=== PATIENT | female | born 2000 | race African-American/Black ===

== ENCOUNTER 2020-06-06 12:34 | Emergency (ER) | payer MEDICAID ==
[~2020-06-06] VITALS: Ht 165.1 cm; Wt 57.5 kg
[2020-06-06 13:22] LABS: BASO # 0.1 10^3/uL (0.0-0.2); EOS # 0.1 10^3/uL (0.0-0.5); EOS % 1.2 % (0.0-3.0); HEMATOCRIT 25.3 % (36.0-47.0); HEMOGLOBIN 7.3 g/dl (12.0-15.5); LYMPH # 1.6 10^3/uL (1.5-5.0); LYMPH % 22.1 % (24.0-44.0); MEAN CORPUSCULAR HEMOGLOBIN 20.4 pg (27.0-33.0); MEAN CORPUSCULAR HGB CONC 28.9 g/dl (32.0-36.5); MEAN CORPUSCULAR VOLUME 70.9 fl (80.0-96.0); MONO # 0.4 10^3/uL (0.0-0.8); MONO % 4.8 % (0.0-5.0); NEUTROPHILS # 5.2 10^3/uL (1.5-8.5); NEUTROPHILS % 70.8 % (36.0-66.0); PLATELET COUNT, AUTOMATED 354 10^3/uL (150-450); RED BLOOD COUNT 3.57 10^6/uL (4.00-5.40); WHITE BLOOD COUNT 7.3 10^3/uL (4.0-10.0)
[2020-06-06] MEDS ORDERED: NS 1,000 ML IV ONE (13:45)
[2020-06-06 13:59] LABS: HCG, SERUM QUALITATIVE NEGATIVE (NEGATIVE)
[2020-06-06 14:22] LABS: GLUCOSE, URINE (UA) MANUAL 1+(100 MG/DL) mg/dL (NEGATIVE); KETONE, URINE MANUAL NEGATIVE (NEGATIVE); UROBILINOGEN, URINE MANUAL NORMAL (NORMAL)
[2020-06-06 14:23] LABS: BILIRUBIN, URINE MANUAL NEGATIVE (NEGATIVE)
[2020-06-06 14:26] LABS: RBC, URINE TNTC /hpf (0-3)
[2020-06-06 14:32] LABS: SQUAMOUS EPITHELIAL CELL URINE SMALL AMOUNT /hpf (SMALL AMT)
[2020-06-06 14:39] LABS: BACTERIA, URINE NONE SEEN
[2020-06-06 14:40] LABS: HYALINE CAST, URINE NONE SEEN /lpf (0-1)
[2020-06-06 15:28] LABS: ALT/SGPT 13 U/L (12-78); BILIRUBIN,DIRECT 0.1 MG/DL (0.0-0.2); BILIRUBIN,TOTAL 0.5 MG/DL (0.2-1.0); BLOOD UREA NITROGEN 10 MG/DL (7-18); CALCIUM LEVEL 9.1 MG/DL (8.5-10.1); CARBON DIOXIDE LEVEL 28 MEQ/L (21-32); CHLORIDE LEVEL 107 MEQ/L (98-107); CREATININE FOR GFR 0.66 MG/DL (0.55-1.30); GLUCOSE, FASTING 100 MG/DL (70-100); IRON (FE) 13 UG/DL (50-170); LIPASE 107 U/L (73-393); PERCENT SATURATION 2.9 % (13.2-45.0); POTASSIUM SERUM 3.8 MEQ/L (3.5-5.1); SODIUM LEVEL 139 MEQ/L (136-145); TOTAL IRON BINDING CAPACITY 454 UG/DL (250-450); TOTAL PROTEIN 7.7 GM/DL (6.4-8.2)
--- NOTE | 2020-06-06 15:38 | REP ---
INDICATION: menorrhagia with low H. COMPARISON: None TECHNIQUE: Transvesical and transvaginal imaging was obtained. FINDINGS: The uterus measures 6.9 x 3.2 x 4.1 cm. The parenchymal echo pattern is within normal limits. The endometrial echo complex measures 8 mm in thickness. A small amount of echogenic material is seen in the lower uterine segment component of the endometrium. There is a trace amount of free fluid in the cul-de-sac. The right ovary measures 4.2 x 2.1 x 2.1 cm and is within normal limits with an RI 0.73. The left ovary measures 4.4 x 1.7 x 3.2 cm and is within normal limits with an RI of 0.61. Urinary bladder measures 4 x 2 x 5 cm. IMPRESSION: Pelvic ultrasonography is within normal limits. There is what is most likely a small amount of blood in the endometrial cavity lower uterine segment region. <Electronically signed by Mauricio Hammonds > 06/06/20 [id number]
[2020-06-06] MEDS ORDERED: ESTR125TA PO (16:00)
[2020-06-06] MEDS ORDERED: PROM12.54 PR (16:00)
[2020-06-06] MEDS ORDERED: FERR325T81 PO (16:00)
[2020-06-06] MEDS ORDERED: PROV10TA PO (16:00)
[2020-06-06 16:09] LABS: CHLAMYDIA DNA AMPLIFICATION NEGATIVE (NEGATIVE); GC DNA AMPLIFICATION NEGATIVE (NEGATIVE)
[2020-06-06 16:35] VITALS: BP 120/73
[2020-06-07 11:31] LABS: FOLATE 5.2 NG/ML; VITAMIN B12 LEVEL 387 PG/ML
== END 2020-06-06 16:41 | disposition home or self-care (01) ==
LOC: M ED 12:34
DX: N92.0 Excessive and frequent menstruation with regular cycle (principal); D64.9 Anemia, unspecified; F12.10 Cannabis abuse, uncomplicated; Z79.899 Other long term (current) drug therapy